=== PATIENT | male | born 1950 | race Caucasian/White ===

== ENCOUNTER → 2019-06-01 | Day surgery (SDC) | payer MEDICARE, OTHER ==
--- NOTE | 2019-05-29 10:30 | NUR ---
Patient instructed to follow up with Dr. Han Davis's office for medication instructions. Patient verbalized understanding and had no questions at this time.
[2019-05-29 11:31] LABS: BASOPHILS % 0.6 % (0.0-1.0); EOSINOPHILS # (AUTO) 0.1 (0.0-0.4); EOSINOPHILS % 2.3 % (0.0-6.0); HEMATOCRIT 36.6 % (38.2-49.6); HEMOGLOBIN 12.2 g/dL (14.0-18.0); LYMPHOCYTES # (AUTO) 1.3 (1.0-3.2); LYMPHOCYTES % 24.7 % (18.0-39.1); MEAN CORPUSCULAR HEMOGLOBIN 32.2 pg (28-32); MEAN CORPUSCULAR HGB CONC 33.3 g/dL (31-35); MEAN CORPUSCULAR VOLUME 96.6 fL (81-99); MONOCYTES # (AUTO) 0.5 (0.2-0.8); MONOCYTES % 9.6 % (4.4-11.3); NEUTROPHILS # (AUTO) 3.3 (2.1-6.9); NEUTROPHILS % 62.2 % (38.7-80.0); PLATELET COUNT 146 x10e3/uL (140-360); RED BLOOD COUNT 3.79 x10e6/uL (4.3-5.7); RED CELL DISTRIBUTION WIDTH 14.7 % (11.7-14.4)
[2019-05-29 11:37] LABS: INR 2.63; PROTHROMBIN TIME 28.8 seconds (11.9-14.5)
[2019-05-29 11:43] LABS: ALBUMIN 3.9 g/dL (3.5-5.0); ALBUMIN/GLOBULIN RATIO 1.3 (0.8-2.0); ANION GAP 13.6 mmol/L (8-16); CALCIUM 9.3 mg/dL (8.4-10.2); CREATININE, SERUM 1.42 mg/dL (0.72-1.25); POTASSIUM 4.6 mmol/L (3.5-5.1)
--- NOTE | 2019-05-29 12:26 | NUR ---
Dr Davis notified of PT 28.8, INR 2.63, creatinine 1.42, and eGFR 50. Dr Davis also notified patient is on Aspirin 81mg PO daily and Warfarin 5mg PO daily. last dose of Aspirin 81mg PO and Warfarin 5mg PO on 05/28/19. No new orders at this time.
[~2019-06-01] VITALS: Ht 182.9 cm; Wt 136.1 kg
[2019-06-01] VITALS (10 sets, daily range): BP systolic 93–110; BP diastolic 59–77
[~2019-06-01] MED LIST: ASPIR 8181 MG PO; ATENOLOL50 MG PO; ATORVASTATIN CA20 MG PO; CALCIPOTRIENE60 G1 TOP; DESONIDE15 GM PO; FENTANYL CITRATE/PF 100MCG/2 ML INJ ONE; FUROSEMIDE40 MG PO; GLIMEPIRIDE2 MG PO; HEPARIN SOD (PORCINE) 1000 UNIT/ML 30ML ONE; HEPARIN SOD/SOD CHLORIDE 2,000 ML ONE; IOPAMIDOL 300MG/ML 100 ML INFUS..BTL IV ONE; LIDOCAINE HCL 2% LOCAL 20 ML VIAL ONE; MIDAZOLAM HCL 2 MG/2 ML VIAL ONE; MONTELUKAST SOD10 MG PO; MORPHINE SULFATE INJ 4 MG/ML INJ 1ML ONE; MULTAQ 400MG T400 MG PO; MULTIVITAMINS1 EAC7 PO; NITROGLYCERIN/D5W 200 MCG/ML 250 ML ONE; OMEPRAZOLE40 MG PO; PIOGLITAZONE HC45 MG PO; POTASSIUM CHLO10 ME1 PO; PRAZOSIN HCL1 MG PO; SODIUM CHLORIDE 0.9% 1000ML 1,000 ML ONE; TRIAMTERENE-HCTZ1 EA PO; VASOTEC10 MG PO; WARFARIN SODIU2.5 MG PO
[2019-06-01 07:53] LABS: INR 1.54; PROTHROMBIN TIME 19.1 seconds (11.9-14.5)
--- NOTE | 2019-06-01 10:45 | NUR ---
1045bedside report received from Ravi MICHELLE. Identiferx2.Alert oriented and appropriate, PERRLA, respirations even and unlabored to room air. Pulses x4 entreaties equal Pedal pulses PT/DP x4 and marked. Cap fill brisk < 3 sec. Skin warm and dry integrity appears D./I. IV 20g to left wrist set at 100cchr via controller, presents healthy w/o s/s of infiltration or complaint. Abdomen soft and supple. pt offered toileting, denies need to urinate or defecate. No personal affects with patient. Family Angela . Pt and family verbalizes understanding POC. Currently w/o complaint of pain or need. ds/[place]
--- NOTE | 2019-06-01 12:00 | NUR ---
1200 5/10 low back pain "feel can't make down time till 230pm"Medicated 4mg morphine ivp left iv site health w/o s/s infiltration remains at bedside. Rt Groin site remains dry and intact No hematoma pp (DP/PT)ds/rn
--- NOTE | 2019-06-01 12:30 | NUR ---
1230 assessed low back pain noted relieved and repositioned Rt Mynx site w/o s/s hematoma or oozing ds/rn
--- NOTE | 2019-06-01 14:30 | NUR ---
1430p Pt meets DC criteria. Rt groin assessed for s/s of complication and presence of hematoma. Skin warm, dry, no discolor, and pulses present. IV removed from left arm. Distal tip appears intact. VS WNL. Pt denies pain, sob, or need at this time. at bedside ambulated to bathroom. Review of discharge paperwork and follow up instructions. verbalized understanding. Pt to wheelchair and transported to front of hospital. Transferred to private vehicle under own strength w/o incident with DC paperwork in hand. ds/rn
--- NOTE | 2019-06-08 00:04 | Operative Report ---
DATE OF PROCEDURE: 06/01/2019 SURGEON: Kevan Davis DO PROCEDURES PERFORMED: 1. Conscious sedation, 30 minutes. 2. Selective lower extremity angiography from the third-order position. 3. Abdominal aortography. 4. Bilateral extremity angiography. PREPROCEDURE DIAGNOSIS: Abnormal Doppler findings with peripheral arterial disease. POSTPROCEDURE DIAGNOSIS: Minimal peripheral arterial disease. ESTIMATED BLOOD LOSS: Less than 20 mL. SPECIMENS REMOVED: None. PROCEDURE IN DETAIL: After informed consent was obtained, the patient was brought to the cardiac catheterization laboratory in a fasting and nonsedated state. Bilateral groins were prepped and draped in the usual sterile fashion. A 2% lidocaine was instilled over the right anterior groin for local anesthesia. Using micropuncture needle, the right common femoral artery was accessed via modified Seldinger technique and a 5-Honduran sheath was placed. Next, diagnostic abdominal aortography was performed using Omni Flush catheter. This was used to cross up and over, and third order peripheral angiography images were performed. Next, angiography of the right lower extremity was performed. The patient tolerated the procedure well with no immediate complications and transferred back to his room in stable condition. Mynx pathologist assistant vascular closure device was used for hemostasis. PROCEDURAL FINDINGS: The abdominal aorta in the infrarenal position is patent without dissection or aneurysm. Bilateral iliac systems are patent without significant disease. Bilateral femoral and popliteal arteries are patent without significant disease. The left anterior tibia has a mid 30% non-flow limiting stenosis. The tibioperoneal trunk, peroneal and posterior tibial vessels are patent. There are three-vessel runoff of the right lower extremity as well. IMPRESSION: Minimal nonobstructive peripheral arterial disease. RECOMMENDATIONS: Medical management. Kevan Davis DO BM/MODL /[id number]
== END | disposition home or self-care (01) ==
LOC: CATH LAB 06:33
PROVIDERS: ATTEND Internal Medicine Cardiovascular Disease
DX: I70.203 Unspecified atherosclerosis of native arteries of extremities, bilateral legs (principal); Z01.812 Encounter for preprocedural laboratory examination; Z79.01 Long term (current) use of anticoagulants; Z79.84 Long term (current) use of oral hypoglycemic drugs; Z79.82 Long term (current) use of aspirin
CPT/HCPCS: 36247; 36415 ×2; 75625; 75716; 80053; 85025; 85610 ×2; C1760; C1769 ×2; J1644; J2001; J2250; J2270; J3010; J7030; Q9967